=== PATIENT | female | born 1955 | race Caucasian/White ===

== ENCOUNTER 2021-06-26 09:12 | Outpatient (CLI) | payer MEDICARE | END 2021-06-26 09:13 | disposition home or self-care (01) | LOC: CSHMAMMO 09:12 | PROVIDERS: ATTEND Internal Medicine | DX: Z12.31 Encounter for screening mammogram for malignant neoplasm of breast (principal); Z13.820 Encounter for screening for osteoporosis; M85.851 Other specified disorders of bone density and structure, right thigh; M85.852 Other specified disorders of bone density and structure, left thigh; Z78.0 Asymptomatic menopausal state; Z80.3 Family history of malignant neoplasm of breast | CPT/HCPCS: 77063; 77067; 77080 ==

== ENCOUNTER 2023-09-02 10:08 | Outpatient (CLI) | payer MEDICARE | END 2023-09-02 10:09 | disposition home or self-care (01) | LOC: CSHMAMMO 10:08 | PROVIDERS: ATTEND Internal Medicine | DX: Z12.31 Encounter for screening mammogram for malignant neoplasm of breast (principal); Z13.820 Encounter for screening for osteoporosis; M85.851 Other specified disorders of bone density and structure, right thigh; M85.852 Other specified disorders of bone density and structure, left thigh; Z78.0 Asymptomatic menopausal state; Z80.3 Family history of malignant neoplasm of breast | CPT/HCPCS: 77063; 77067; 77080 ==

== ENCOUNTER 2024-10-03 10:10 | Outpatient (CLI) | payer MEDICARE | END 2024-10-03 10:11 | disposition home or self-care (01) | LOC: CSHMAMMO 10:10 | PROVIDERS: ATTEND Internal Medicine | DX: Z12.31 Encounter for screening mammogram for malignant neoplasm of breast (principal); Z80.3 Family history of malignant neoplasm of breast | CPT/HCPCS: 77063; 77067 ==